=== PATIENT | female | born 2000 | race Two or more races ===

== ENCOUNTER 2018-06-13 22:13 | Emergency (ER) | payer MEDICAID, OTHER ==
[~2018-06-13] VITALS: Ht 154.9 cm; Wt 54.7 kg
[2018-06-13 22:15] VITALS: BP 125/80
[2018-06-13 22:49] LABS: BASOPHILS # (AUTO) 0.03 x10^3/uL (0-0.3); BASOPHILS % (AUTO) 0 % (0-1); EOSINOPHILS # (AUTO) 0.11 x10^3/uL (0-0.8); EOSINOPHILS % (AUTO) 1 % (1-7); LYMPHOCYTES # (AUTO) 2.73 x10^3/uL (1-6.1); LYMPHOCYTES % (AUTO) 28 % (22-44); MD NO; MEAN CORPUSCULAR HEMOGLOBIN 24.9 pg (27.0-34.8); MEAN CORPUSCULAR HGB CONC 31.8 g/dL (32.4-35.8); MEAN CORPUSCULAR VOLUME 78.4 fL (80-100); MEAN PLATELET VOLUME 10.1 fL (7.4-10.4); MONOCYTES # (AUTO) 0.65 x10^3/uL (0-1.4); MONOCYTES % (AUTO) 7 % (2-9); NEUTROPHILS # (AUTO) 6.18 x10^3/uL (1.8-8.0); NEUTROPHILS % (AUTO) 64 % (42-75); PLATELET COUNT 250 x10^3/uL (130-400); RED BLOOD COUNT 4.81 x10^6/uL (3.82-5.3); RED CELL DISTRIBUTION WIDTH 18.1 % (9.6-15.2)
[2018-06-13 23:00] LABS: ALANINE AMINOTRANSFERASE 15 U/L (12-78); ALBUMIN 3.9 g/dL (3.4-5.0); ANION GAP 6 mmol/L (5-15); CALCIUM 8.2 mg/dL (8.5-10.1); CHLORIDE 105 mmol/L (98-107); CREATININE 0.73 mg/dL (0.55-1.02)
[2018-06-13 23:02] LABS: ALKALINE PHOSPHATASE 57 U/L (45-117); BILIRUBIN,TOTAL 0.4 mg/dL (0.2-1.0); TOTAL PROTEIN 7.6 g/dL (6.4-8.2)
[2018-06-13 23:04] LABS: HCG UR SG 1.006 (1.003-1.030); MICROSCOPIC AUTO
[2018-06-13 23:09] LABS: CULTURE INDICATED? YES
== END 2018-06-13 23:40 | disposition home or self-care (01) ==
LOC: ED 22:46
DX: R30.0 Dysuria (principal); R10.84 Generalized abdominal pain
CPT/HCPCS: 36415; 80053; 81001; 81025; 83690; 85025; 87077; 87086; 87186; 99284

== ENCOUNTER 2018-08-24 12:48 | Emergency (ER) | payer OTHER ==
[~2018-08-24] VITALS: Ht 154.9 cm; Wt 51.9 kg
--- NOTE | 2018-08-24 13:29 | NUR ---
PATIENT PRESENTS TO ED TODAY FOR N/V AND EPIGASTRIC ABD PAIN, 5 WEEKS , DENIES VAG BLEEDING/DC/CRAMPING. PATIENT AMB TO BATHROOM WITH STEADY GAIT, UA COLLECTED AND SENT TO LAB. PATIENT TO US AT THIS TIME VIA [facility].
[2018-08-24] MEDS ORDERED: SODIUM CHLORIDE FLUSH 10ML SYR IVF ONE (13:30)
[2018-08-24] MEDS ORDERED: METOCLOPRAMIDE 5 MG/ML, 2ML IVPush ONE (13:30)
[2018-08-24] MEDS ORDERED: SODIUM CHLORIDE 0.9% 1,000ML IVBOLUS ONE (13:30)
[2018-08-24 13:51] LABS: BASOPHILS # (AUTO) 0.02 x10^3/uL (0-0.3); BASOPHILS % (AUTO) 0 % (0-1); EOSINOPHILS % (AUTO) 0 % (1-7); LYMPHOCYTES % (AUTO) 16 % (22-44); MD NO; MEAN CORPUSCULAR HEMOGLOBIN 25.2 pg (27.0-34.8); MEAN CORPUSCULAR HGB CONC 32.4 g/dL (32.4-35.8); MEAN CORPUSCULAR VOLUME 77.6 fL (80-100); MEAN PLATELET VOLUME 10.7 fL (7.4-10.4); MONOCYTES % (AUTO) 6 % (2-9); NEUTROPHILS % (AUTO) 78 % (42-75); PLATELET COUNT 234 x10^3/uL (130-400); RED BLOOD COUNT 4.75 x10^6/uL (3.82-5.3)
[2018-08-24 14:00] LABS: ALBUMIN 3.8 g/dL (3.4-5.0); ANION GAP 7 mmol/L (5-15); CALCIUM 8.4 mg/dL (8.5-10.1); CHLORIDE 105 mmol/L (98-107)
[2018-08-24 14:00] LABS: MICROSCOPIC NOT IND
[2018-08-24 14:02] LABS: CULTURE INDICATED? NO
[2018-08-24 14:21] LABS: CREATININE 0.64 mg/dL (0.55-1.02)
--- NOTE | 2018-08-24 14:32 | NUR ---
PATIENT SITTING IN GURNEY, WATCHING TV, FRIEND AT BEDSIDE, A+OX4. NO ADDITIONAL NEEDS, AWAITING RESULTS.
--- NOTE | 2018-08-24 14:49 | NUR ---
RESULTS BACK, CHART UP FOR RECHECK.
[2018-08-24] MEDS ORDERED: ONDANSETRON ODT 4 MG ONE (15:05)
--- NOTE | 2018-08-24 15:11 | NUR ---
NO IV PER ERP, PO ZOFRAN ADMINISTERED. PATIENT SITTING IN [facility].
--- NOTE | 2018-08-24 15:11 | NUR ---
Bedside SBAR report received from [facility]. Pt medicated per MAR, VS updated and stable.
--- NOTE | 2018-08-24 15:24 | NUR ---
Pt provided water for PO challenge.
[2018-08-24] MEDS ORDERED: ONDANSETRON ODT 4 MG PO ONE (15:30)
[2018-08-24 15:49] VITALS: BP 100/51
--- NOTE | 2018-08-24 15:50 | NUR ---
Patient/Caregiver given discharge instructions and they have confirmed that they understand the instructions. Patient ambulatory with steady gait.
== END 2018-08-24 15:51 | disposition home or self-care (01) ==
LOC: ED 13:06
DX: O21.0 Mild hyperemesis gravidarum (principal); Z3A.01 Less than 8 weeks gestation of pregnancy
CPT/HCPCS: 36415; 76830; 80048; 81003; 82040; 84702; 85025; 99284; Q0162